=== PATIENT | female | born 1970 | race Caucasian/White ===

== ENCOUNTER 2017-02-07 01:08 | Emergency (ER) | payer MEDICARE ==
[~2017-02-07] VITALS: Ht 165.1 cm; Wt 51.5 kg
[2017-02-07] MEDS ORDERED: CEFTRIAXONE 1,000 MG IM ONE (03:00)
[2017-02-07] MEDS ORDERED: AZITHROMYCIN 500 MG TABLET PO ONE (03:00)
[2017-02-07] MEDS ORDERED: AZITHROMYCIN 250 MG TABLET ONE (03:05)
[2017-02-07] MEDS ORDERED: CEFTRIAXONE 1,000 MG ONE ×2 (03:05→03:11)
[2017-02-07 03:32] VITALS: BP 102/60
== END 2017-02-07 03:45 | disposition home or self-care (01) ==
LOC: ED 03:17
DX: J15.9 Unspecified bacterial pneumonia (principal); Z72.89 Other problems related to lifestyle; F15.129 Other stimulant abuse with intoxication, unspecified
CPT/HCPCS: 71010; 93005; 96372; 99284; J0696

== ENCOUNTER 2017-03-02 04:41 | Emergency (ER) | payer MEDICARE ==
[~2017-03-02] VITALS: Ht 165.1 cm; Wt 51.3 kg
[2017-03-02 04:45] VITALS: BP 126/88
== END 2017-03-02 05:22 | disposition home or self-care (01) ==
LOC: ED 05:16
DX: R07.89 Other chest pain (principal)
CPT/HCPCS: 99281

== ENCOUNTER 2017-06-14 02:45 | Emergency (ER) | payer MEDICARE, OTHER ==
[~2017-06-14] VITALS: Ht 165.1 cm; Wt 59.1 kg
[2017-06-14 02:46] VITALS: BP 115/79
[2017-06-14] MEDS ORDERED: AZITHROMYCIN 500 MG TABLET ONE (04:08)
[2017-06-14] MEDS ORDERED: CEFTRIAXONE 250 MG ONE (04:09)
[2017-06-14 04:14] LABS: CLUE CELLS PRESENT (NONE SEEN)
[2017-06-14 04:15] LABS: WET PREP WBCS MODERATE (FEW)
[2017-06-14 04:15] LABS: CULTURE INDICATED? YES; MICROSCOPIC INDICATED
[2017-06-14] MEDS ORDERED: CEFTRIAXONE 250 MG IM ONE (04:30)
[2017-06-14] MEDS ORDERED: AZITHROMYCIN 500 MG TABLET PO ONE (04:30)
== END 2017-06-14 05:03 | disposition home or self-care (01) ==
LOC: ED 05:02
DX: N30.00 Acute cystitis without hematuria (principal); N76.0 Acute vaginitis
CPT/HCPCS: 36415; 81001; 84703; 87086; 87210; 87491; 87591; 87808; 96372; 99284; J0696